=== PATIENT | male | born 1930 | race Caucasian/White ===

== ENCOUNTER 2017-01-30 16:54 | Emergency (ER) | payer MEDICARE, BC ==
[2017-01-30 17:06] VITALS: BP 173/69
--- NOTE | 2017-01-30 17:29 | EDM.PDOC ---
ED HPI GENERAL MEDICAL PROBLEM - General Chief Complaint: Laceration Stated Complaint: RIGHT ARM SKIN TEAR Time Seen by Provider: 01/30/17 17:15 Source of Information: Reports: Patient History Limitations: Reports: No Limitations - History of Present Illness INITIAL COMMENTS - FREE TEXT/NARRATIVE: 86 YO WM presents to ER after trip and fall. Pt reports he was walking and tripped on the ground scraping his right forearm on a piece of metal. Pt has a skin teat to volar aspect of right forearm. No bleeding. Superficial wound only. 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) - Related Data Allergies Allergy/AdvReac Type Severity Reaction Status Date / Time No Known Drug Allergies Allergy Cannot Verified 01/30/17 17:02 Remember Home Meds: Home Meds Apixaban [Eliquis] 1 tab PO BID 01/30/17 [History] Losartan [Cozaar] 1 tab PO DAILY 01/30/17 [History] Metoprolol Tartrate 25 mg PO BID 01/30/17 [History] Omeprazole 1 cap PO DAILY 01/30/17 [History] Tamsulosin [Flomax] 1 cap PO DAILY 01/30/17 [History] amLODIPine [Norvasc] 5 mg PO DAILY 01/30/17 [History] atorvaSTATin [Lipitor] 80 mg PO DAILY 01/30/17 [History] Social & Family History - Tobacco Use Smoking Status *Q: Former Smoker Used Tobacco, but Quit: Yes Month Tobacco Last Used: 46 Second Hand Smoke Exposure: No - Caffeine Use Caffeine Use: Reports: Coffee, Soda - Recreational Drug Use Recreational Drug Use: No ED ROS GENERAL - Review of Systems Review Of Systems: See Below Constitutional: Reports: No Symptoms HEENT: Reports: No Symptoms Respiratory: Reports: No Symptoms Cardiovascular: Reports: No Symptoms Endocrine: Reports: No Symptoms GI/Abdominal: Reports: No Symptoms : Reports: No Symptoms Musculoskeletal: Reports: No Symptoms Skin: Reports: No Symptoms Neurological: Reports: No Symptoms Psychiatric: Reports: No Symptoms Hematologic/Lymphatic: Reports: No Symptoms Immunologic: Reports: No Symptoms ED EXAM, SKIN/RASH Exam: See Below Exam Limited By: No Limitations General Appearance: Alert, WD/WN, No Apparent Distress Ears: Normal External Exam, Normal Canal, Hearing Grossly Normal, Normal TMs Nose: Normal Inspection, Normal Mucosa, No Blood Throat/Mouth: Normal Inspection, Normal Lips, Normal Teeth, Normal Gums, Normal Oropharynx, Normal Voice, No Airway Compromise Head: Atraumatic, Normocephalic Neck: Normal Inspection, Supple, Non-Tender, Full Range of Motion Respiratory/Chest: No Respiratory Distress, Lungs Clear, Normal Breath Sounds, No Accessory Muscle Use, Chest Non-Tender Cardiovascular: Normal Peripheral Pulses, Regular Rate, Rhythm, No Edema, No Gallop, No JVD, No Murmur, No Rub GI/Abdominal: Normal Bowel Sounds, Soft, Non-Tender, No Organomegaly, No Distention, No Abnormal Bruit, No Mass Back Exam: Normal Inspection, Full Range of Motion, NT Extremities: Normal Inspection, Normal Range of Motion, Non-Tender, No Pedal Edema, Normal Capillary Refill Neurological: Alert, Oriented, CN II-XII Intact, Normal Cognition, Normal Gait, Normal Reflexes, No Motor/Sensory Deficits Psychiatric: Normal Affect, Normal Mood Skin: Wound/Incision (superfical skin tear to volar aspect of right forearm) Lymphatic: No Adenopathy Course - Vital Signs Last Recorded V/S: Last Vital Signs Temp 36.6 C 01/30/17 17:00 Pulse 65 01/30/17 17:00 Resp 16 01/30/17 17:00 BP 173/69 H 01/30/17 17:00 Pulse Ox 96 01/30/17 17:00 Departure - Departure Time of Disposition: 17:31 Disposition: Home, Self-Care 01 Condition: Good Clinical Impression: Skin tear - Discharge Information Instructions: Laceration Care, Adult, Abrasion Forms: ED Department Discharge - Assessment/Plan Assessment:: 1. skin tear to right forearm 2. tetanus- UTD Plan: 1. wound dressing 2. wound care instructions 3. return to Er for worsening symptoms
== END 2017-01-30 17:40 | disposition home or self-care (01) ==
LOC: KA.ED 16:54
DX: S51.811A Laceration without foreign body of right forearm, initial encounter (principal); Z79.899 Other long term (current) drug therapy; Z87.891 Personal history of nicotine dependence; W01.0XXA Fall on same level from slipping, tripping and stumbling without subsequent striking against object, initial encounter
CPT/HCPCS: 99282; 99283